=== PATIENT | female | born 1990 | race Two or more races ===

== ENCOUNTER 2022-08-12 05:09 | Inpatient (IN) | payer OTHER ==
[~2022-08-12] VITALS: Ht 149.9 cm; Wt 77.1 kg
[2022-08-12] MEDS ORDERED: PRENATAL + DHA1 EAC1 PO (07:20)
[2022-08-12] MEDS ORDERED: HIERRO PO (07:20)
[2022-08-12] MEDS ORDERED: NIFEDIPINE20 MG PO (07:21)
[2022-08-12] MEDS ORDERED: ADULT LOW DOSE81 M1 PO (07:22)
== END 2022-08-14 14:17 | disposition home or self-care (01) | DRG 788 ==
LOC: OB/GYN 05:09 → LDR 05:09 → OB/GYN 10:06
PROVIDERS: ADMIT Specialist; ATTEND Specialist
PROC: 0UB90ZZ Excision of Uterus, Open Approach (ICD-10-PCS; 2022-08-12)
PROC: 4A1HXCZ Monitoring of Products of Conception, Cardiac Rate, External Approach (ICD-10-PCS; 2022-08-12)
PROC: 10D00Z1 Extraction of Products of Conception, Low, Open Approach (ICD-10-PCS; principal; 2022-08-12 08:45)
DX: O32.2XX0 Maternal care for transverse and oblique lie, not applicable or unspecified (principal); O34.13 Maternal care for benign tumor of corpus uteri, third trimester; D25.9 Leiomyoma of uterus, unspecified; Z3A.37 37 weeks gestation of pregnancy; Z37.0 Single live birth; Z20.822 Contact with and (suspected) exposure to COVID-19

== ENCOUNTER 2024-10-18 07:20 | Day surgery (SDC) | payer OTHER ==
[~2024-10-18 07:20] MED LIST: ADULT LOW DOSE81 M1 PO; HIERRO PO; NIFEDIPINE20 MG PO; PRENATAL + DHA1 EAC1 PO
[2024-10-18] MEDS ORDERED: OXYTOCIN 10 UNITS/ML VIAL ONE (16:16)
[2024-10-18] MEDS ORDERED: CARBOPROST TROMETHAMINE 250 MCG/ML AMPUL IM ONE (17:42)
[2024-10-18] MEDS ORDERED: POVIDONE-IODINE 118 ML BOTT TOP ONE (17:43)
[2024-10-18] MEDS ORDERED: ONDANSETRON HCL 2 MG/ML VIAL ONE (19:02)
== END 2024-10-18 22:30 | disposition home or self-care (01) ==
LOC: CIR.AMB 07:20
PROVIDERS: ATTEND Specialist
DX: O03.4 Incomplete spontaneous abortion without complication (principal); E11.9 Type 2 diabetes mellitus without complications; I10 Essential (primary) hypertension; Z91.013 Allergy to seafood; C80.1 Malignant (primary) neoplasm, unspecified